=== PATIENT | female | born 1950 | race Caucasian/White ===

== ENCOUNTER 2017-08-21 07:18 | Outpatient (CLI) | payer MEDICARE ==
[~2017-08-21 07:18] MED LIST: Gadobenate Dimeglumine 529 MG/1 ML (20ML VIAL) ONE
--- NOTE | 2017-08-21 10:00 | MRI ---
MRI OF THE LUMBAR SPINE WITHOUT CONTRASTS: Date: 08-21-17 Comparison: None. History: Lumbar spine facet arthritis, right lower extremity radiculopathy, back pain. Technique: Multiplanar, multisequence MR imaging of the lumbar spine is obtained without contrast. FINDINGS: The sagittal STIR imaging demonstrates no focal area of osseous marrow edema. There is mild fluid sig nal intensity within the facet joints at L3-4, left greater than right. No significant anterolisthesi s or retrolisthesis is seen. Assuming five lumbar type vertebral bodies, the conus medullaris termina luiza at the T12-L1 level. T12-L1: Intervertebral disc height and signal intensity appears within normal limits. Mild anterior o steophyte formation noted left of midline. No significant central canal or neural foraminal stenosis. L1-2: Mild bilateral facet hypertrophy. No significant central canal or neural foraminal stenosis. L2-3: There is bilateral facet hypertrophy and hypertroph of ligamentum flavum. No significant centr al canal stenosis or neural foraminal stenosis. L3-4: There is moderate bilateral facet hypertrophy and hypertrophy of ligamentum flavum, left greate r than right. There is disc space narrowing, disc desiccation and mild disc bulge. Findings lead to m oderate central canal stenosis. There is mild bilateral neural foraminal stenosis. L4-5: There is moderate bilateral facet hypertrophy. There is mild central canal stenosis and mild to moderate bilateral neural foraminal stenosis. L5-S1: There is disc desiccation and mild disc space narrowing. There is bilateral facet hypertrophy. There is mild central canal stenosis. No significant neural foraminal stenosis. The imaged retroperitoneal structures appear grossly unremarkable. IMPRESSION: Multilevel facet hypertrophy with associated areas of central canal and neural foraminal stenosis, mo st significant at L3-4. POS: ERIKA
== END 2017-08-21 07:19 | disposition home or self-care (01) ==
LOC: MRI 07:18
PROVIDERS: ATTEND Family Medicine
DX: M46.96 Unspecified inflammatory spondylopathy, lumbar region (principal); M99.83 Other biomechanical lesions of lumbar region
CPT/HCPCS: 72158; 82565; A9579

== ENCOUNTER 2018-08-27 13:13 | Outpatient (CLI) | payer MEDICARE ==
--- NOTE | 2018-08-27 15:13 | BD ---
DEXA DENSITOMETRY: INDICATIONS: A 68-year-old female for postmenopausal osteoporosis screening. FINDINGS: LUMBAR SPINE BMD (g/cm2) T-SCORE L1 1.042 0.5 L2 1.117 0.8 L3 1.112 0.3 L4 1.122 0.6 TOTAL 1.101 0.5 FEMORAL NECK 0.767 -0.7 TOTAL 0.872 -0.6 IMPRESSION: The bone mineral density of the lumbar spine and femoral neck are both within the normal range. POS: ERIKA
== END 2018-08-27 13:14 | disposition home or self-care (01) ==
LOC: BICMAMMO 13:13
PROVIDERS: ATTEND Family Medicine
DX: Z12.31 Encounter for screening mammogram for malignant neoplasm of breast (principal); Z13.820 Encounter for screening for osteoporosis
CPT/HCPCS: 77063; 77067; 77080

== ENCOUNTER 2019-06-10 07:15 | Outpatient (CLI) | payer MEDICARE ==
[2019-06-10 13:42] LABS: #Eosinphils 0.4 thou/uL (0.0-0.7); #Monocytes 0.9 thou/uL (0.11-0.59); #Neutrophils 5.7 thou/uL (1.40-6.50); %Basophils 0.4 % (0.0-1.0); %Eosinophils 3.3 % (0.0-10.0); %Lymphocytes 36.1 % (21.0-51.0); %Monocytes 8.3 % (0.0-10.0); Hemoglobin 14.6 g/dL (12.0-16.0); Mean Corpuscular HGB CONC 33.3 g/dL (32.0-36.0); Mean Corpuscular Hemoglobin 29.2 pg (27.0-31.0); Mean Corpuscular Volume 87.9 fL (78.0-98.0); Mean Platelet Volume 9.8 fL (7.4-10.4); Platelet Count 202 thou/uL (130-400); RBC Distribution Width 11.9 % (11.5-14.5); Red Blood Cell (RBC) Count 4.99 mill/uL (4.20-5.40)
[2019-06-10 13:49] LABS: Bacteria/HPF 4+ HPF (None Seen); Bilirubin Negative (Negative); Blood, Urine Negative (Negative); Clarity Turbid (Clear); Glucose, Urine (Dipstick) Normal (Negative); Leukocyte 500 Leu/uL (Negative); Nitrite Negative (Negative); Protein, Urine (Dipstick) 30 mg/dL (Neg-Trace); Squamous Epithelial 21-50 HPF (0-3); WBC/HPF Greater than 50 HPF (0-3)
[2019-06-10 14:03] LABS: RBC/HPF 0-3 HPF (0-3); Yeast-Budding None Seen HPF (None Seen)
[2019-06-10 14:31] LABS: Anion Gap 14 mmol/L (10-20); BUN (Urea Nitrogen) 15 mg/dL (9.8-20.1); Calc. Creatinine Clearance 0 mL/min (70-130); Calcium 9.2 mg/dL (7.8-10.44); Carbon Dioxide 26 mmol/L (23-31); Chloride 103 mmol/L (98-107); Estimated GFR-MDRD 73; Glucose 85 mg/dL (80-115); Potassium 4.1 mmol/L (3.5-5.1); Sodium 139 mmol/L (136-145)
[2019-06-10 14:38] LABS: INR-International Normal Ratio 0.9; Prothrombin Time 12.2 SEC (12.0-14.7)
== END 2019-06-10 07:16 | disposition home or self-care (01) ==
LOC: LABBT 07:15
PROVIDERS: ATTEND Orthopaedic Surgery
DX: Z01.812 Encounter for preprocedural laboratory examination (principal); M16.11 Unilateral primary osteoarthritis, right hip
CPT/HCPCS: 80048; 81001; 85025; 85610; 87081; 93005; 93010

== ENCOUNTER 2019-06-10 13:30 | Inpatient (IN) | payer MEDICARE ==
[2019-06-10 12:42] VITALS: BMI 35.6
[2019-06-22] MEDS ORDERED: Sodium Chloride 0.9% 100 ML ONE (05:53)
[2019-06-22] MEDS ORDERED: Tranexamic Acid 1,000 MG/10 ML VIAL ONE ×2 (05:53→09:42)
[2019-06-22] MEDS ORDERED: Vancomycin HCl 1.5 GM in Sodium Chloride 0.9% 250 ML 300 ML IVPB SCH ×3 (06:15→19:00)
[2019-06-22] MEDS ORDERED: Fentanyl 100 MCG/2 ML VIAL ONE ×2 (06:29→07:06)
[2019-06-22] MEDS ORDERED: Midazolam HCl 2 mg/2 ml Vial ONE (06:29)
[2019-06-22] MEDS ORDERED: Acetaminophen 500 MG TAB PO PRN (06:56)
[2019-06-22] MEDS ORDERED: diphenhydrAMINE 50 MG/ML VIAL IM PRN (07:00)
[2019-06-22] MEDS ORDERED: traMADol HCl 50 MG TAB PO PRN ×3 (07:00→09:11)
[2019-06-22] MEDS ORDERED: Promethazine HCl 25 MG/ML VIAL IM PRN ×3 (07:00→09:11)
[2019-06-22] MEDS ORDERED: diphenhydrAMINE 25 MG CAP PO PRN ×2 (07:00→09:11)
[2019-06-22] MEDS ORDERED: Promethazine HCl 25 MG SUPP PR PRN (07:00)
[2019-06-22] MEDS ORDERED: Zolpidem Tartrate 5 MG TAB PO PRN ×2 (07:00→09:11)
[2019-06-22] MEDS ORDERED: Naloxone HCl 0.4 mg/ml Vial IV PRN (07:00)
[2019-06-22] MEDS ORDERED: Hydrocerin (Eucerin) Cream 120 gm Jar TOP PRN (07:00)
[2019-06-22] MEDS ORDERED: Naloxone HCl 0.4 mg/ml Vial IVP PRN (07:00)
[2019-06-22] MEDS ORDERED: diphenhydrAMINE 50 MG/ML VIAL IVP PRN (07:00)
[2019-06-22] MEDS ORDERED: HYDROcodone/Acetaminophen 5/325 mg Tablet PO PRN ×2 (07:00)
[2019-06-22] MEDS ORDERED: Ondansetron PF 4 MG/2 ML Vial IVP PRN ×2 (07:00→09:11)
[2019-06-22] MEDS ORDERED: Bupivacaine 0.25% HCL 30 ML VIAL ONE (07:40)
[2019-06-22] MEDS ORDERED: Ondansetron HCl/PF 4 MG/2 ML Vial IVP PRN (09:10)
[2019-06-22] MEDS ORDERED: Promethazine HCl 25 MG/ML VIAL SLOW IVP PRN (09:10)
[2019-06-22] MEDS ORDERED: Fentanyl 100 MCG/2 ML VIAL SLOW IVP PRN ×2 (09:11)
[2019-06-22] MEDS ORDERED: HYDROcodone/Acetaminophen 10/325 mg Tablet PO PRN ×2 (09:11)
[2019-06-22] MEDS ORDERED: Acetaminophen 325 MG TAB PO PRN (09:11)
[2019-06-22] MEDS ORDERED: Ketorolac Tromethamine 30 MG/ML VIAL IVP PRN (09:11)
--- NOTE | 2019-06-22 10:13 | RAD ---
RIGHT HIP 2 VIEWS: Date: 06/22/19 HISTORY: Hip replacement. FINDINGS/IMPRESSION: There are recent postop changes of total hip arthroplasty in good position and alignment. POS: TPC
[2019-06-22] MEDS ORDERED: Mometasone Furoate 30 PUFF 220 MCG INH PRN (10:31)
[2019-06-22] MEDS: Aspirin 81 mg Enteric Coated Tablet PO SCH ×2 (11:01→21:16)
[2019-06-22] MEDS: Dextrose 5 %-0.45 % NaCl 1,000 ML IV SCH ×2 (11:01→23:31)
[2019-06-22] MEDS: Ketorolac Tromethamine 30 MG/ML VIAL IVP SCH ×3 (11:01→23:27)
--- NOTE | 2019-06-22 11:20 | HP ---
PREOPERATIVE DIAGNOSIS: Right hip osteoarthritis. HISTORY OF PRESENT ILLNESS: Ms. Beasley is a 69-year-old female, who presents to me with right hip pain for greater than 3 years. Pain is 0/10. She has history of lumbar stenosis, pain with walking long distance. She has pain with extremes of motion localized to her groin. PAST MEDICAL HISTORY: Hypertension, right hip pain, hypothyroidism, arthritis, lumbar stenosis, hypertension, and reflux. PAST SURGICAL HISTORY: Left broken ankle ORIF. ALLERGIES: INCLUDE CIPROFLOXACIN. MEDICATIONS: Include; 1. Aspirin. 2. Clonidine. 3. Diclofenac. 4. Flovent. 5. Furosemide. 6. Levothyroxine. 7. Lisinopril. 8. Multivitamin. 9. Omeprazole. SOCIAL HISTORY: She is a former smoker. No alcohol, or drug use. The patient's daughter is at bedside. PHYSICAL EXAMINATION: GENERAL: Alert and oriented female, in no acute distress, resting comfortably in bed. EXTREMITIES: Little bit slightly shorter right lower extremity. No instability. Neurovascularly intact. Sensation intact. Internal rotation 20, external 20 straight legs. IMAGING DATA: Hip and pelvis x-ray show progression of osteoarthritis of her right hip. LABORATORY VALUES: MRSA negative. Her creatinine is 0.79. The patient's H and H are 14 and 43. INR 0.9. Bacteria and squamous epithelium. No ketones. IMPRESSION: 1. Right hip osteoarthritis. 2. Stenosis. 3. Reflux. 4. Hypertension. PLAN: At this point, the patient is cleared by Cardiology. Plan for right total hip arthroplasty. I discussed the risks and benefits of surgery to include pain, scar, bleeding, infection, need for further surgeries, continued pain by surgical intervention, lengthening, rotational deformity, irritation of the low back, damage to vital structures, nerves, arteries, tendons, need for further surgeries, failure of procedure or implants [facility], also loss of life or limb, the patient understands these risks and benefits, elects to proceed. The patient was taken back to the operative suite. Job ID: [id number]
[2019-06-22] MEDS ORDERED: Ondansetron PF 4 MG/2 ML Vial ONE (12:38)
[2019-06-22] MEDS ORDERED: Rocuronium Bromide 10 MG/ML (10ML VIAL) ONE (12:38)
[2019-06-22] MEDS ORDERED: ePHEDrine/0.9% NaCl/PF SYRINGE 50 mg/10 ml ONE (12:38)
[2019-06-22] MEDS ORDERED: PROPOFOL 200 MG/20 ML VIAL ONE (12:38)
[2019-06-22] MEDS ORDERED: Dexamethasone 20 MG/5 ML VIAL ONE (12:38)
[2019-06-22] MEDS ORDERED: Lidocaine 1.5% w/Epi 1:200K 30 ML VIAL (Epid Use) ONE (12:38)
[2019-06-22] MEDS ORDERED: Glycopyrrolate 0.2 MG/ML 5 ML SYRINGE ONE (12:38)
[2019-06-22] MEDS ORDERED: Lidocaine 1% PF 5 ML VIAL ONE (12:38)
--- NOTE | 2019-06-22 12:56 | PDOC.HOSPP ---
- Subjective Encounter Date: 06/22/19 Encounter Time: 11:00 Subjective: no sob or palp is post op, awake and oriented her right leg is still numb but can move it - Objective Vital Signs & Weight: Vital Signs (12 hours) Temp Pulse Resp BP Pulse Ox 06/22/19 11:37 95 06/22/19 10:12 97.2 F L 71 16 95/59 L 96 Weight Weight 189 lb Hospitalist ROS - Medication Medications: Active Medications Generic Name Dose Route Start Last Admin Trade Name Freq PRN Reason Stop Dose Admin Aspirin 81 mg 06/22/19 09:11 06/22/19 11:01 Ecotrin PO 81 mg BID JONATHAN Administration Dextrose/Sodium Chloride 1,000 mls @ 100 mls/hr 06/22/19 09:11 06/22/19 11:01 D5 1/2 Ns IV 1,000 mls .Q10H JONATHAN Administration Ketorolac Tromethamine 15 mg 06/22/19 12:00 06/22/19 11:01 Toradol IVP 06/24/19 06:01 15 mg Q6HR JONATHAN Administration Ondansetron HCl 4 mg 06/22/19 07:00 06/22/19 11:14 Zofran IVP 4 mg Q6H PRN Administration Nausea/Vomiting - Exam General Appearance: awake alert Eye: PERRL, anicteric sclera ENT: no oropharyngeal lesions, dry oral mucosa Neck: supple, no JVD Heart: no murmur, no rubs Respiratory: no wheezes, no rales Gastrointestinal: soft, non-tender, non-distended, normal bowel sounds Extremities - other findings: right hip surgical site in dressing Neurological: cranial nerve grossly intact, no focal deficits Psychiatric: normal affect, A&O x 3 Hosp A/P (1) Status post right hip replacement Code(s): Z96.641 - PRESENCE OF RIGHT ARTIFICIAL HIP JOINT Status: Acute (2) HTN (hypertension) Code(s): I10 - ESSENTIAL (PRIMARY) HYPERTENSION Status: Chronic Qualifiers: Hypertension type: essential hypertension Qualified Code(s): I10 - Essential (primary) hypertension (3) Hypothyroidism Code(s): E03.9 - HYPOTHYROIDISM, UNSPECIFIED Status: Chronic Qualifiers: Hypothyroidism type: unspecified Qualified Code(s): E03.9 - Hypothyroidism , unspecified (4) Osteoarthritis Code(s): M19.90 - UNSPECIFIED OSTEOARTHRITIS, UNSPECIFIED SITE Status: Chronic Qualifiers: Osteoarthritis location: multiple joints Osteoarthritis type: primary Qualified Code(s): M15.0 - Primary generalized (osteo)arthritis - Plan currently hypotensive, will hold clonidine, lasix and lisinopril continue iv fluids, asp bid, synthroid, i.spirometer PT/OT to mobilize per ortho adv will f/u ekg at baseline is sinus at 63/min, has underlying rbbb. on fentanyl, norco prn, has nerve block
--- NOTE | 2019-06-22 14:15 | OP ---
DATE OF PROCEDURE: 06/22/2019 PREOPERATIVE DIAGNOSIS: Right hip osteoarthritis. POSTOPERATIVE DIAGNOSIS: Right hip osteoarthritis. PROCEDURE PERFORMED: Right total hip arthroplasty. DIVINITY PROFESSOR: Kalina Bond PA-C ANESTHESIOLOGIST: Dr. Castaneda. ANESTHESIA: The patient received a general endotracheal intubation with an epidural. ESTIMATED BLOOD LOSS: 200 mL. TOURNIQUET TIME: None. IMPLANTS: A Marija Trident 10-degree poly insert 36 mm E, Trident PSL cluster acetabular shell 52 mm, Accolade II, 30 degree and size 3 stem, and a Biolox 36 mm modified ceramic delta implant. ANTIBIOTICS: Ancef 2 g, vancomycin 1.5 g, and TXA 1 g. COMPLICATIONS: None. HISTORY OF PRESENT ILLNESS: Ms. Beasley is a 69-year-old female, who presented with right hip pain. The patient had failed conservative measures to include pain, scar, bleeding, infection, damage to vital structures, decreased range of motion and strength, need for further surgeries, failure of procedure, continued pain despite conservative management. The patient understood the risks and benefits of right total hip arthroplasty to include pain, scar, bleeding, infection, damage to vital structures, decreased range of motion and strength, need for further surgeries, loss of life or limb. The patient understood these risks and benefits and elected to proceed. DESCRIPTION OF PROCEDURE: Time-out was performed designating the patient's right lower extremity as the operative site based on site, consents, marking. After time-out, the patient's right lower extremity was prepped and draped in a sterile fashion. She was placed in lateral position with bony prominences well padded so far with hip positioner. We made a lateral incision down through skin, down through fat, down the IT band. The IT band was split and we came down the gluteus medius, which we did a tenotomy. We came down to expose the patient's gluteus medius and minimus to the capsule. We T'd the capsule excised it. We dislocated the hip and cut the neck and exposed the acetabulum. We reamed sequentially medializing starting with a 44 moving back down to 46 and back up to 52 and ultimately plan a 52 mm hemispherical cup. We impacted the cup in place, had good firm and stability. I felt it had good inclination as well as tilt except with overall alignment. We then placed our poly,in place We moved our femur, broached with cookie cutter, opening awl, followed by broach, broached to size 3 calcar planer, washed and reduced the hip with -3 fish had good range of motion. Good shuck, overall alignment and length, was happy with overall position. We then placed our ceramic head, reduced into place, washed, closed the gluteus minimus and medius with #2 , closed IT band with 2, followed by 2 stratafix,placed some subcutaneous fat stitches. We placed 0 and 2-0 Stratafix and glue to skin. The patient will be weightbearing as tolerated and will be followed in-house, on a walker. We will follow up with her in clinic about 2 weeks. Job ID: [id number] [facility]
[2019-06-22] MEDS: CEFAZOLIN 2 GM in Premix Bag 1 BAG IVPB SCH ×2 (15:40→23:27)
[2019-06-22] MEDS ORDERED: cloNIDine 0.1 MG TAB PO SCH (21:00)
[2019-06-22] MEDS ORDERED: Lisinopril 20 MG TAB PO SCH (21:00)
[2019-06-23] MEDS: fentaNYL Citrate/PF 500 MCG, Bupivacaine 10 ML in Sodium Chloride 0.9% 80 ML EPIDURAL SCH ×2 (01:16→15:57)
[2019-06-23 05:30] LABS: Mean Corpuscular HGB CONC 33.7 g/dL (32.0-36.0); Mean Corpuscular Hemoglobin 29.4 pg (27.0-31.0); Mean Corpuscular Volume 87.2 fL (78.0-98.0); Mean Platelet Volume 10.3 fL (7.4-10.4); Platelet Count 163 thou/uL (130-400); RBC Distribution Width 12.1 % (11.5-14.5); Red Blood Cell (RBC) Count 4.09 mill/uL (4.20-5.40); White Blood Cell (WBC) Count 13.8 thou/uL (4.8-10.8)
[2019-06-23] MEDS: Ketorolac Tromethamine 30 MG/ML VIAL IVP SCH ×3 (05:37→18:34)
[2019-06-23] MEDS: Levothyroxine Sodium 75 MCG TAB PO SCH (05:37)
[2019-06-23] MEDS ORDERED: Furosemide 20 MG TAB PO SCH (09:00)
[2019-06-23 09:26] LABS: Anion Gap 16 mmol/L (10-20); BUN (Urea Nitrogen) 9 mg/dL (9.8-20.1); Calc. Creatinine Clearance 103 mL/min (70-130); Calcium 8.4 mg/dL (7.8-10.44); Carbon Dioxide 19 mmol/L (23-31); Chloride 103 mmol/L (98-107); Estimated GFR-MDRD 81; Glucose 124 mg/dL (80-115); Potassium 3.9 mmol/L (3.5-5.1); Sodium 134 mmol/L (136-145)
[2019-06-23] MEDS ORDERED: Sodium Bicarbonate Tab 325 MG TAB PO SCH (10:15)
[2019-06-23] MEDS: Multivitamin W/ Minerals 1 TAB PO SCH (10:24)
[2019-06-23] MEDS: Aspirin 81 mg Enteric Coated Tablet PO SCH ×2 (10:24→21:17)
[2019-06-23] MEDS: Senokot S 8.6-50 MG TAB PO SCH ×2 (10:24→21:17)
[2019-06-23] MEDS: Ferrous Gluconate 324 MG TAB PO SCH ×2 (10:24→21:17)
[2019-06-23] MEDS: Dextrose 5 %-0.45 % NaCl 1,000 ML IV SCH ×2 (10:37→17:08)
[2019-06-23] MEDS ORDERED: FLU VACC TS2019-20(65YR UP)/PF 180 MCG/0.5 ML SYRINGE IM ONE (12:15)
--- NOTE | 2019-06-23 13:49 | PDOC.HOSPP ---
- Subjective Encounter Date: 06/23/19 Encounter Time: 13:47 Subjective: 69 y/o with HTN, hypothyroidism and DJD s/p R hip replacement being followed up for medical mgt. No new problem. Ambulating with therapy. No dizziness. Pain is controlled. - Objective Vital Signs & Weight: Vital Signs (12 hours) Temp Pulse Resp BP Pulse Ox 06/23/19 12:20 98.2 F 86 14 142/64 H 94 L 06/23/19 08:19 98.9 F 86 18 106/66 95 06/23/19 04:53 98.2 F 85 16 109/68 93 L Weight Admit Weight 189 lb Weight 189 lb I&O: 06/22/19 06/23/19 06/24/19 06:59 06:59 06:59 Intake Total 3140 Output Total 2850 Balance 290 Result Diagrams: 06/23/19 04:22 06/23/19 08:44 Hospitalist ROS - Medication Medications: Active Medications Generic Name Dose Route Start Last Admin Trade Name Freq PRN Reason Stop Dose Admin Aspirin 81 mg 06/22/19 09:11 06/23/19 10:24 Ecotrin PO 81 mg BID JONATHAN Administration Ferrous Gluconate 324 mg 06/23/19 09:00 06/23/19 10:24 Fergon PO 324 mg BID JONATHAN Administration Fentanyl Citrate 500 mcg/ 100 mls @ 6 mls/hr 06/22/19 07:00 06/23/19 01:16 Bupivacaine HCl 10 ml/ Sodium EPIDURAL 100 mls Chloride INF JONATHAN Administration Dextrose/Sodium Chloride 1,000 mls @ 100 mls/hr 06/22/19 09:11 06/23/19 10:37 D5 1/2 Ns IV Not Given .Q10H JONATHAN Iron/Minerals/Multivitamins 1 tab 06/23/19 09:00 06/23/19 10:24 Theragran M PO 1 tab DAILY JONATHAN Administration Ketorolac Tromethamine 15 mg 06/22/19 12:00 06/23/19 05:37 Toradol IVP 06/24/19 06:01 15 mg Q6HR JONATHAN Administration Levothyroxine Sodium 75 mcg 06/23/19 06:00 06/23/19 05:37 Synthroid PO 75 mcg 0600 JONATHAN Administration Ondansetron HCl 4 mg 06/22/19 07:00 06/22/19 11:14 Zofran IVP 4 mg Q6H PRN Administration Nausea/Vomiting Promethazine HCl 12.5 mg 06/22/19 07:00 06/22/19 13:13 Phenergan IM 12.5 mg Q4H PRN Administration Nausea Senna/Docusate Sodium 2 tab 06/23/19 09:00 06/23/19 10:24 Senokot S PO 2 tab BID JONATHAN Administration - Exam General Appearance: awake alert Eye: anicteric sclera ENT: normocephalic atraumatic Neck: supple, no JVD Heart: RRR Respiratory: no wheezes, no rales, no ronchi, normal chest expansion Gastrointestinal: soft, non-tender, non-distended, normal bowel sounds Extremities: no cyanosis, no edema Neurological: cranial nerve grossly intact, no focal deficits Psychiatric: normal affect, A&O x 3 Hosp A/P (1) Metabolic acidosis Code(s): E87.2 - ACIDOSIS Status: Acute (2) Hypotension Status: Acute (3) Status post right hip replacement Code(s): Z96.641 - PRESENCE OF RIGHT ARTIFICIAL HIP JOINT Status: Acute (4) HTN (hypertension) Code(s): I10 - ESSENTIAL (PRIMARY) HYPERTENSION Status: Chronic Qualifiers: Hypertension type: essential hypertension Qualified Code(s): I10 - Essential (primary) hypertension (5) Hypothyroidism Code(s): E03.9 - HYPOTHYROIDISM, UNSPECIFIED Status: Chronic Qualifiers: Hypothyroidism type: unspecified Qualified Code(s): E03.9 - Hypothyroidism , unspecified (6) Osteoarthritis Code(s): M19.90 - UNSPECIFIED OSTEOARTHRITIS, UNSPECIFIED SITE Status: Chronic Qualifiers: Osteoarthritis location: multiple joints Osteoarthritis type: primary Qualified Code(s): M15.0 - Primary generalized (osteo)arthritis (7) Hyponatremia Code(s): E87.1 - HYPO-OSMOLALITY AND HYPONATREMIA Status: Acute - Plan Start alkali therapy. Continue IV fluid Continue to hold antihypertensives till BP stabilize. Analgesic as per Ortho
[2019-06-23] MEDS: Sodium Bicarbonate Tab 325 MG TAB PO SCH (21:17)
[2019-06-24] MEDS: Ketorolac Tromethamine 30 MG/ML VIAL IVP SCH ×2 (00:28→05:20)
[2019-06-24] MEDS: Dextrose 5 %-0.45 % NaCl 1,000 ML IV SCH (01:14)
[2019-06-24 04:56] LABS: Hemoglobin 11.8 g/dL (12.0-16.0); Mean Corpuscular HGB CONC 33.3 g/dL (32.0-36.0); Mean Corpuscular Hemoglobin 29.3 pg (27.0-31.0); Mean Platelet Volume 9.5 fL (7.4-10.4); Platelet Count 157 thou/uL (130-400); RBC Distribution Width 12.2 % (11.5-14.5); Red Blood Cell (RBC) Count 4.02 mill/uL (4.20-5.40); White Blood Cell (WBC) Count 11.3 thou/uL (4.8-10.8)
[2019-06-24 05:14] LABS: Anion Gap 12 mmol/L (10-20); BUN (Urea Nitrogen) 7 mg/dL (9.8-20.1); Calc. Creatinine Clearance 110 mL/min (70-130); Calcium 8.6 mg/dL (7.8-10.44); Carbon Dioxide 25 mmol/L (23-31); Chloride 105 mmol/L (98-107); Estimated GFR-MDRD 88; Glucose 104 mg/dL (80-115); Sodium 138 mmol/L (136-145)
[2019-06-24] MEDS: Levothyroxine Sodium 75 MCG TAB PO SCH (05:20)
[2019-06-24] MEDS: Aspirin 81 mg Enteric Coated Tablet PO SCH (09:50)
[2019-06-24] MEDS: Ferrous Gluconate 324 MG TAB PO SCH (09:50)
[2019-06-24] MEDS: Sodium Bicarbonate Tab 325 MG TAB PO SCH (09:50)
[2019-06-24] MEDS: Senokot S 8.6-50 MG TAB PO SCH (09:51)
[2019-06-24] MEDS: Multivitamin W/ Minerals 1 TAB PO SCH (09:51)
[2019-06-24] MEDS ORDERED: Ondansetron ODT 4 MG TAB PO PRN (10:33)
[2019-06-24] MEDS ORDERED: Bisacodyl 10 MG SUPP PR SCH (10:45)
--- NOTE | 2019-06-24 11:29 | PDOC.HOSPP ---
- Subjective Encounter Date: 06/24/19 Encounter Time: 10:28 Subjective: 69 y/o with HTN, hypothyroidism and DJD s/p R hip replacement being followed up for medical mgt. No new problem. Ambulating with therapy. Ambulating with therapy. - Objective Vital Signs & Weight: Vital Signs (12 hours) Temp Pulse Resp BP BP Pulse Ox 06/24/19 11:10 99.4 F 86 16 147/81 H 94 L 06/24/19 08:21 98.0 F 86 14 132/79 94 L 06/24/19 04:28 99.4 F 86 16 136/75 94 L 06/23/19 23:38 99.6 F 86 16 155/84 H 94 L Weight Admit Weight 189 lb Weight 189 lb I&O: 06/23/19 06/24/19 06/25/19 06:59 06:59 06:59 Intake Total 3140 2500 Output Total 2850 3700 Balance 290 -1200 Result Diagrams: 06/24/19 04:37 06/24/19 04:37 Hospitalist ROS - Medication Medications: Active Medications Generic Name Dose Route Start Last Admin Trade Name Freq PRN Reason Stop Dose Admin Aspirin 81 mg 06/22/19 09:11 06/24/19 09:50 Ecotrin PO 81 mg BID JONATHAN Administration Ferrous Gluconate 324 mg 06/23/19 09:00 06/24/19 09:50 Fergon PO 324 mg BID JONATHAN Administration Fentanyl Citrate 500 mcg/ 100 mls @ 6 mls/hr 06/22/19 07:00 06/23/19 15:57 Bupivacaine HCl 10 ml/ Sodium EPIDURAL 100 mls Chloride INF JNOATHAN Administration Iron/Minerals/Multivitamins 1 tab 06/23/19 09:00 06/24/19 09:51 Theragran M PO 1 tab DAILY JONATHAN Administration Levothyroxine Sodium 75 mcg 06/23/19 06:00 06/24/19 05:20 Synthroid PO 75 mcg 0600 JONATHAN Administration Ondansetron HCl 4 mg 06/24/19 10:33 06/24/19 10:35 Zofran Odt PO 4 mg Q6H PRN Administration Nausea/Vomiting Pantoprazole Sodium 40 mg 06/24/19 09:00 06/24/19 09:52 Protonix PO 40 mg Q2D JONATHAN Administration Promethazine HCl 12.5 mg 06/22/19 07:00 06/22/19 13:13 Phenergan IM 12.5 mg Q4H PRN Administration Nausea Senna/Docusate Sodium 2 tab 06/23/19 09:00 06/24/19 09:51 Senokot S PO 2 tab BID JONATHAN Administration - Exam General Appearance: awake alert Eye: anicteric sclera ENT: normocephalic atraumatic Neck: supple, symmetric, no JVD Heart: RRR Respiratory: no wheezes, no ronchi, normal chest expansion, no tachypnea Gastrointestinal: soft, non-tender, non-distended, normal bowel sounds Extremities: no cyanosis, no edema Neurological: cranial nerve grossly intact, no focal deficits Psychiatric: normal affect, A&O x 3 Hosp A/P (1) Metabolic acidosis Code(s): E87.2 - ACIDOSIS Status: Acute (2) Hypotension Status: Acute (3) Status post right hip replacement Code(s): Z96.641 - PRESENCE OF RIGHT ARTIFICIAL HIP JOINT Status: Acute (4) HTN (hypertension) Code(s): I10 - ESSENTIAL (PRIMARY) HYPERTENSION Status: Chronic Qualifiers: Hypertension type: essential hypertension Qualified Code(s): I10 - Essential (primary) hypertension (5) Hypothyroidism Code(s): E03.9 - HYPOTHYROIDISM, UNSPECIFIED Status: Chronic Qualifiers: Hypothyroidism type: unspecified Qualified Code(s): E03.9 - Hypothyroidism , unspecified (6) Osteoarthritis Code(s): M19.90 - UNSPECIFIED OSTEOARTHRITIS, UNSPECIFIED SITE Status: Chronic Qualifiers: Osteoarthritis location: multiple joints Osteoarthritis type: primary Qualified Code(s): M15.0 - Primary generalized (osteo)arthritis (7) Hyponatremia Code(s): E87.1 - HYPO-OSMOLALITY AND HYPONATREMIA Status: Acute - Plan Restart antihypertensive at a lower dose of lisinopril 10 mg daily. DC IVF and alkali therapy Hyponatremia hs resolved. [place] to be due to volume contraction with appropriate ADH secretion. Analgesic as per Ortho Can be discharged from Medical point of view. However lisinopril 10 daily will suffice for now till re evaluated by PCP. Patient advised to check BP am/pm and keep a log to be reviewed by PCP
[2019-06-24] MEDS ORDERED: Lisinopril 10 MG TAB PO SCH (11:30)
[2019-06-24 16:10] VITALS: BP 109/71; TEMP 98.9
--- NOTE | 2019-06-25 14:24 | DIS ---
DATE OF ADMISSION: 06/22/2019 DATE OF DISCHARGE: 06/24/2019 This is Kalina Bond PA-C dictating a report for Pelon Cespedes MD. REASON FOR ADMISSION: Right total hip replacement. CONSULTANTS ON THE CASE: Include [facility] as well as [facility]. PREOPERATIVE DIAGNOSIS: Right hip osteoarthritis. POSTOPERATIVE DIAGNOSIS: Right hip osteoarthritis. PROCEDURE PERFORMED: Right total hip arthroplasty. BRIEF HOSPITAL COURSE: Ms. Beasley is a 69-year-old female who had initial presentation of right hip pain. She failed conservative measures and was indicated for the above-mentioned procedure. 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 No complications were incurred during her hospital stay. On postoperative day #2, she was discharged home. DISCHARGE DISPOSITION: Home. DISCHARGE CONDITION: Stable. DISCHARGE INSTRUCTIONS: The patient will follow up as scheduled with home health physical therapy. She will follow up with Dr. Cespedes as scheduled. She will keep her operative site to her hip clean, dry, and intact until followup. She will change the dressing as needed. DISCHARGE MEDICATIONS: See OCT. Job ID: [id number]
== END 2019-06-24 16:27 | disposition home or self-care (01) | DRG 470 ==
LOC: SJJU 06-22 05:17 → SURG B 06-22 10:07
PROVIDERS: ADMIT Orthopaedic Surgery; ATTEND Orthopaedic Surgery
PROC: 0SR904Z Replacement of Right Hip Joint with Ceramic on Polyethylene Synthetic Substitute, Open Approach (ICD-10-PCS; principal; 2019-06-22)
DX: M16.11 Unilateral primary osteoarthritis, right hip (principal); E87.2 Acidosis; E87.1 Hypo-osmolality and hyponatremia; E78.5 Hyperlipidemia, unspecified; I95.9 Hypotension, unspecified; M48.061 Spinal stenosis, lumbar region without neurogenic claudication; K21.9 Gastro-esophageal reflux disease without esophagitis; I10 Essential (primary) hypertension; E03.9 Hypothyroidism, unspecified; Z88.1 Allergy status to other antibiotic agents; Z87.891 Personal history of nicotine dependence
CPT/HCPCS: 36415; 80048; 85027; 90471; 90662; G0008; J0690; J1100; J1885; J2001; J2250; J2405; J2550; J2704; J3010; J3370; J3490; J7050; Q0162; S0020

== ENCOUNTER 2019-08-04 07:50 | Emergency (ER) | payer MEDICARE ==
[2019-08-04 09:14] LABS: Bilirubin Negative (Negative); Blood, Urine Negative (Negative); Clarity Clear (Clear); Glucose, Urine (Dipstick) Normal (Negative); Leukocyte Negative Leu/uL (Negative); Nitrite Negative (Negative); Protein, Urine (Dipstick) 20 mg/dL (Neg-Trace); Urobilinogen Normal mg/dL (Less than 2)
[2019-08-04] MEDS ORDERED: Cyclobenzaprine 10 MG TAB ONE (09:35)
[2019-08-04] MEDS ORDERED: Ketorolac Tromethamine 30 MG/ML VIAL ONE (09:35)
== END 2019-08-04 10:40 | disposition home or self-care (01) ==
LOC: ERS 07:50
DX: G89.29 Other chronic pain (principal); M54.5 Low back pain; I49.9 Cardiac arrhythmia, unspecified; I10 Essential (primary) hypertension; Z87.891 Personal history of nicotine dependence
CPT/HCPCS: 81003; 96372; 99283; J1885

== ENCOUNTER 2020-05-05 13:06 | Outpatient (CLI) | payer MEDICARE ==
--- NOTE | 2020-05-05 14:37 | MRI ---
Exam: MRI cervical spine without contrast HISTORY: Cervical disc disease. Facet arthritis, cervical region.. COMPARISON: None FINDINGS: Appropriate T1 marrow signal intensity of the cervical vertebra. Cervical spine vertebral body heigh ts are maintained. No cervical spine fracture. No significant STIR hyperintensity to suggest ligamentous injury or vertebral body edema. There appears to be incomplete segmentation of the C5-C6 level. Findings are similar to radiograph fr om 04/17/2020 Visualized brain parenchyma, cervicomedullary junction, cervical cord and the upper thoracic cord are normal size and signal intensity C2-C3: No high-grade central canal stenosis. Patent right neural foramen. Moderate left foraminal sindi rowing due to uncovertebral and facet hypertrophy C3-C4: Central/left paracentral disc osteophyte complex with a superimposed disc herniation. Moderate mass effect and deformity the left hemicord, without cord signal abnormality. Mild right and moderate left foraminal narrowing predominantly due to uncovertebral and facet hypertrophy. C4-C5: Desiccation with moderate loss of disc space height. Broad-based discussed by complex, ligamen claude flavum thickening result in severe central canal stenosis. Abnormal T2 and STIR hyperintensity cord suggesting cord edema. Moderate right and severe left foraminal narrowing. C5-C6: Lack of complete segmentation. No significant central canal stenosis or significant neural for aminal narrowing C6-C7: Desiccation with moderate loss of disc space height. A central disc herniation which deforms t he midline cord. No cord signal abnormality. Moderate central canal stenosis. Mild right and moderate to severe left foraminal narrowing. C7-T1: No significant central canal stenosis or significant neural foraminal narrowing. IMPRESSION: 1. 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 Severe central canal stenosis at C4-C5 with associated T2 hyperintensity in the cord, most compati ble with cortical edema. 3. Varying degrees of neural foraminal narrowing as detailed above. Results of study conveyed to Dr. India Cooley via [facility] 05/05/2020 at 2:37 PM Code CR Transcribed Date/Time: 05/05/2020 2:50 PM
== END 2020-05-05 13:07 | disposition home or self-care (01) ==
LOC: TBSIIMAG 13:06
PROVIDERS: ATTEND Family Medicine
DX: M50.90 Cervical disc disorder, unspecified, unspecified cervical region (principal); M47.812 Spondylosis without myelopathy or radiculopathy, cervical region; M48.02 Spinal stenosis, cervical region
CPT/HCPCS: 72141

== ENCOUNTER 2020-05-17 10:10 | Outpatient (CLI) | payer MEDICARE ==
--- NOTE | 2020-05-17 10:31 | RAD ---
XR Cerv Sp Ap Lat STANDARD History: MRI follow-up Comparison: MRI cervical spine May 05, 2020 Findings: Large disc osteophyte complex at C4/C5. Ankylosis of the C5/C6 vertebral bodies which are s mall. Moderate C6/C7 disc osteophyte complex. 2 mm C4 over C5 retrolisthesis without significant translation with flexion or extension. Mild abnorm al posterior translation of C3 over C4 with cervical extension. Impression: Mild abnormal posterior translation of C3 over C4 with cervical extension.
== END 2020-05-17 10:11 | disposition home or self-care (01) ==
LOC: TBSIIMAG 10:10
PROVIDERS: ATTEND Neurological Surgery
DX: G95.20 Unspecified cord compression (principal)
CPT/HCPCS: 72040

== ENCOUNTER 2020-05-31 09:00 | Outpatient (CLI) | payer MEDICARE, OTHER ==
[2020-05-31 14:07] LABS: Anion Gap 13 mmol/L (10-20); BUN (Urea Nitrogen) 18 mg/dL (9.8-20.1); Calc. Creatinine Clearance 0 mL/min (70-130); Carbon Dioxide 26 mmol/L (23-31); Chloride 102 mmol/L (98-107); Estimated GFR-MDRD 63; Glucose 94 mg/dL (80-115); Potassium 4.2 mmol/L (3.5-5.1); Sodium 137 mmol/L (136-145)
[2020-05-31 14:20] LABS: #Eosinphils 0.1 thou/uL (0.0-0.7); #Lymphocytes 3.3 thou/uL (1.20-3.40); #Monocytes 1.2 thou/uL (0.11-0.59); #Neutrophils 13.2 thou/uL (1.40-6.50); %Basophils 0.3 % (0.0-1.0); %Eosinophils 0.5 % (0.0-10.0); %Lymphocytes 18.7 % (21.0-51.0); %Monocytes 6.8 % (0.0-10.0); %Neutrophils 73.8 % (42.0-75.0); Hemoglobin 15.6 g/dL (12.0-16.0); Mean Corpuscular HGB CONC 33.2 g/dL (32.0-36.0); Mean Corpuscular Hemoglobin 30.3 pg (27.0-31.0); Mean Corpuscular Volume 91.4 fL (78.0-98.0); Mean Platelet Volume 9.8 fL (7.4-10.4); Platelet Count 281 thou/uL (130-400); RBC Distribution Width 12.2 % (11.5-14.5); Red Blood Cell (RBC) Count 5.15 mill/uL (4.20-5.40); White Blood Cell (WBC) Count 17.8 thou/uL (4.8-10.8)
[2020-05-31 14:31] LABS: INR-International Normal Ratio 0.9; Prothrombin Time 12.5 sec (12.0-14.7)
[2020-06-01 12:48] LABS: SARS-CoV-2 MS2 Positive; SARS-CoV-2 N Gene Negative; SARS-CoV-2 S Gene Negative; SARS-CoV-2 by NAA Not Detected (NotDetected); SARS-CoV-2 orf1ab Negative
== END 2020-05-31 09:01 | disposition home or self-care (01) ==
LOC: LABBT 09:00
PROVIDERS: ATTEND Neurological Surgery
DX: Z01.812 Encounter for preprocedural laboratory examination (principal); M50.20 Other cervical disc displacement, unspecified cervical region; Z20.828 Contact with and (suspected) exposure to other viral communicable diseases
CPT/HCPCS: 80048; 85025; 85610; U0003; 87635

== ENCOUNTER → 2020-06-05 | Day surgery (SDC) | payer MEDICARE ==
[2020-06-02 09:59] VITALS: BMI 37.8
[~2020-06-05] MED LIST changes: +Albuterol Sulfate HFA (OR ONLY) ONE; +Dexamethasone 20 MG/5 ML VIAL ONE; +Fentanyl 100 MCG/2 ML VIAL ONE; +Fentanyl 250 MCG/5 ML VIAL ONE; -Gadobenate Dimeglumine 529 MG/1 ML (20ML VIAL) ONE; +Glycopyrrolate 0.2 MG/ML 5 ML SYRINGE ONE; +HYDROcodone/Acetaminophen 5/325 mg Tablet ONE; +Labetalol HCl 100 MG/20 ML VIAL ONE; +Lidocaine 1% PF 5 ML VIAL ONE; +Midazolam HCl 2 mg/2 ml Vial ONE; +Ondansetron PF 4 MG/2 ML Vial ONE; +PROPOFOL 200 MG/20 ML VIAL ONE; +Rocuronium Bromide 10 MG/ML (10ML VIAL) ONE; +Thrombin 5000 UNITS/5 ML VIAL ONE; +tiZANidine HCl 4 MG TAB ONE
--- NOTE | 2020-06-05 05:58 | HP ---
REASON FOR H AND P: Surgery on 06/05/2020, case #[id number]. HISTORY OF PRESENT ILLNESS: Ms. Beasley is a 70-year-old female with a chief complaint of neck pain, hands going numb, clumsy fingers, and unsteady gait. She started to notice the onset of her symptoms in March. She has bilateral arm pain, paresthesias along with her fingers not working properly. She has been more off balance. She now has to use either a cane or walker, so she does not fall. Her balance has become a concern because of her frequent falls. She denies any bladder or bowel dysfunction. REVIEW OF SYSTEMS: CONSTITUTIONAL: Denies fever or chills. ENT: Denies change in vision or hearing. CARDIAC: Denies chest pain, shortness of breath, or diaphoresis. PULMONARY: Denies shortness of breath, cough, or hemoptysis. GI: Denies abdominal pain, nausea, vomiting, diarrhea, or change in stool formation and consistency. : Denies trouble with urination, frequency of urination, bloody urine. SKIN: Denies skin rash, bruising, bleeding, or skin masses. MUSCULOSKELETAL: As per history of present illness. NEUROLOGIC: As per history of present illness. PSYCHOLOGICAL: Denies anxiety, depression, or behavior changes. MEDICATIONS: 1. Lisinopril 20 mg. 2. Clonidine 1 mg. 3. Levothyroxine 50 mcg. 4. Furosemide 20 mg. 5. Voltaren gel. 6. Baby aspirin. 7. Multivitamin. 8. Vicodin 5/325 mg. ALLERGIES: CIPROFLOXACIN OR CIPRO. PAST SURGICAL HISTORY: Broken ankle, right THR in 2019. HOSPITALIZATIONS: As above surgeries. MEDICAL HISTORY: HTN, HBP, abnormal ECG, hip pain, thyroid, back problems, arthritis. FAMILY HISTORY: Father . Mother , diagnosed with heart disease, stroke. SOCIAL HISTORY: Former smoker. Denies alcohol or illicit drugs. PHYSICAL EXAMINATION: VITAL SIGNS: Weight 180 pounds, height 61 inches, BMI 34.01. HEENT: Pupils are equal. Extraocular movements are intact. NECK: Soft, supple. No masses are noted. Range of motion is intact and nonpainful. NEUROLOGIC: Awake, alert, and oriented x3. Memory, attention, fund of knowledge normal. Cranial nerves grossly intact. Gait and station, lifts legs, tandem gait impossible, uses a walker to ambulate safely. Motor exam, loss of strength in SE's and IO's on both sides. Sensory exam, nondermatomal loss in both hands. Reflex exam, toes upgoing, brisk knee jerks. IMAGING: C-spine MRI, change in cord at level of compression C4-5. Hemicord compression at left C3-4. C6-7 disk without cord compression. 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 C-spine x-ray, flexion, extension, slight retrolisthesis of C4-5 with extension. ASSESSMENT: 1. 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 2. 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 PLAN: 1. ACDF C3-4, C4-5. 2. Preop labs, CBC, PT, PTT, COVID-19 testing. 3. Anesthesia clearance. INFORMED CONSENT: We discussed the indications, risks, benefits, alternatives, and expected results from surgery. The risks discussed included, but were not limited to bleeding, infection, CSF leak, nerve damage, weakness, swallowing trouble, feeding tube placement, tracheal injury, esophageal injury, vocal cord injury, spinal cord injury, incontinence, paralysis, ventilator dependency, wheelchair dependency, stroke, loss of vision, carotid artery injury, jugular vein injury, hardware misplacement, cardiopulmonary complications of anesthesia or . Long-term complications discussed included, but were not limited to hardware failure and degeneration of surrounding disk. She understands the risks and is willing to proceed. Job ID: [id number] [facility]
--- NOTE | 2020-06-05 11:07 | OP ---
DATE OF PROCEDURE: 06/05/2020 LABOR RELATIONS REPRESENTATIVE: Lawrence Sanchez PA-C PREOPERATIVE INDICATION: Prevent further neurological deterioration. 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 PROCEDURES PERFORMED: 1. Anterior cervical diskectomy, C3-4, C4-5. 2. Intervertebral arthrodesis, C3-4, C4-5. 3. Placement of intervertebral biomechanical device, C3-4 and C4-5. 4. Anterior cervical plating, C3-4 and C4-5. 5. Local morselized autograft, morselized allograft. 6. Operating microscope (interbody devices and anterior cervical plate were separate devices). DRAIN NUMBER: Zero. DRAIN TYPE: None. DESCRIPTION OF PROCEDURE: The patient was brought to the operating room. General endotracheal anesthesia was induced. The patient was carefully positioned on the operating table supine with her head supported by a donut-shaped headrest. A lateral fluoro radiograph was used to plan our incision. The right side of the neck was sterilely prepped and draped. We opened the incision with a 10 blade knife and controlled bleeding with bipolar cautery. We dissected sharply to the platysma and cut this muscle in line with our incision. We continued our dissection medial to the sternocleidomastoid and lateral to the trachea and esophagus. We arrived to the prevertebral space. We placed a marker at C3-4 and took a lateral fluoro radiograph to confirm the levels upon which we were operating. We then elevated the longus colli muscles off the anterior surface of C3, C4, and C5. C5 and C6 were one bone due to her Klippel-Feil anomaly. We elevated the longus colli muscles off the entire fused bone. We placed a self-retaining retractor underneath the longus colli muscles and placed distraction pins at C3 and C5. We distracted across the intervening interspaces. We incised those interspaces with a 15 blade knife and removed disk contents using curettes and rongeurs. The operative microscope was brought into the field. Under microscopic magnification using microsurgical techniques, we removed the remainder of the intervertebral disk. We accessed the ventral epidural space with a micro curette and used Kerrison rongeurs to remove posterior osteophytes and posterior longitudinal ligament and the remnants of disk from one neuroforamen across the interspace to the other neuroforamen. Once our decompression was secured, we turned our attention to arthrodesis. We prepared the endplates for grafting. We measured the height of the interspace with a bone rasp to 6 mm at C4-5 and 7 mm at C3-4. The appropriately sized PEEK intervertebral grafts were brought into the field. Osteophytes removed during our decompression were cleaned of soft tissue attachments, morselized, and added to demineralized bone matrix as our fusion substrate. The substrate was packed in the center of the PEEK graft and those grafts were advanced into the interspaces under radiographic guidance to the appropriate depth. We brought a 34 mm anterior cervical plate into the field. We removed the operating microscope. We drilled yard pilot holes through the plate into the vertebral body into the C3, C4, and C5 segments of the cervical spine. We affixed the plate using 14 mm screws. We engaged the locking mechanism over each of the 6 screws. AP and lateral fluoro radiographs confirmed adequate positioning of instrumentation. We irrigated with bacitracin irrigation. We closed in anatomical layers. We applied a sterile dressing. This was a clean case, no contamination. Job ID: [id number]
== END ==
LOC: SDC 05:43
PROVIDERS: ATTEND Neurological Surgery
PROC: 0RG20A0 Fusion of 2 or more Cervical Vertebral Joints with Interbody Fusion Device, Anterior Approach, Anterior Column, Open Approach (ICD-10-PCS; principal; 2020-06-05)
PROC: 0RT30ZZ Resection of Cervical Vertebral Disc, Open Approach (ICD-10-PCS; 2020-06-05)
DX: M50.01 Cervical disc disorder with myelopathy, high cervical region (principal); Q76.1 Klippel-Feil syndrome; I10 Essential (primary) hypertension; E07.9 Disorder of thyroid, unspecified; M19.90 Unspecified osteoarthritis, unspecified site; Z87.891 Personal history of nicotine dependence; Z79.82 Long term (current) use of aspirin; Z79.899 Other long term (current) drug therapy; Z88.1 Allergy status to other antibiotic agents
CPT/HCPCS: 20930; 20936; 22551; 22552; 22853 ×2; 76000; C1713 ×4; C1776; J0690; J1100; J2250; J2405; J2704; J3010; J3490

== ENCOUNTER 2020-12-21 10:43 | Outpatient (CLI) | payer MEDICARE | END 2020-12-21 10:44 | disposition home or self-care (01) | LOC: BICMAMMO 10:43 | PROVIDERS: ATTEND Family Medicine | DX: Z12.31 Encounter for screening mammogram for malignant neoplasm of breast (principal); Z13.820 Encounter for screening for osteoporosis; M85.852 Other specified disorders of bone density and structure, left thigh | CPT/HCPCS: 77063; 77067; 77080 ==

== ENCOUNTER 2022-01-02 08:25 | Observation (INO) | payer MEDICARE ==
[2022-01-02 10:17] LABS: Troponin I Less than 0.010 ng/mL (< 0.028)
[2022-01-02] MEDS ORDERED: Aspirin Chewable 81 MG TAB ONE (10:27)
[2022-01-02] MEDS ORDERED: hydrALAZINE 20 MG/ML VIAL SLOW IVP PRN (11:09)
[2022-01-02 13:25] VITALS: BMI 36.2
[2022-01-02 14:00] LABS: Troponin I Less than 0.010 ng/mL (< 0.028)
[2022-01-02] MEDS: Acetaminophen 325 MG TAB PO PRN (20:47)
[2022-01-02 21:37] LABS: SARS-CoV-2 PCR by NAA Not Detected (NotDetected)
[2022-01-03 05:32] LABS: #Eosinphils 0.4 thou/uL (0.0-0.7); #Lymphocytes 2.6 thou/uL (1.20-3.40); #Monocytes 0.5 thou/uL (0.11-0.59); #Neutrophils 4.8 thou/uL (1.40-6.50); %Basophils 0.5 % (0.0-1.0); %Eosinophils 4.4 % (0.0-10.0); %Monocytes 6.1 % (0.0-10.0); Hemoglobin 12.5 g/dL (12.0-16.0); Mean Corpuscular HGB CONC 28.8 g/dL (32.0-36.0); Mean Corpuscular Hemoglobin 27.5 pg (27.0-31.0); Mean Corpuscular Volume 95.2 fL (78.0-98.0); Mean Platelet Volume 10.1 fL (7.4-10.4); Platelet Count 231 thou/uL (130-400); RBC Distribution Width 12.6 % (11.5-14.5); Red Blood Cell (RBC) Count 4.57 mill/uL (4.20-5.40); White Blood Cell (WBC) Count 8.2 thou/uL (4.8-10.8)
[2022-01-03] MEDS ORDERED: Artificial Tear Sol 15 ML BOT EA EYE PRN (05:48)
[2022-01-03 05:51] LABS: ALT (SGPT) 27 U/L (8-55); AST (SGOT) 19 U/L (5-34); Albumin 3.7 g/dL (3.4-4.8); Alkaline Phosphatase 122 U/L (40-110); Anion Gap 16 mmol/L (10-20); BUN (Urea Nitrogen) 11 mg/dL (9.8-20.1); Bilirubin, Total 0.8 mg/dL (0.2-1.2); Calc. Creatinine Clearance 94 mL/min (70-130); Calcium 9.1 mg/dL (7.8-10.44); Carbon Dioxide 23 mmol/L (23-31); Cardiac Risk 6.4 (Less than 4.5); Chloride 106 mmol/L (98-107); Cholesterol 186 mg/dl (< 200 Desired); Glucose 109 mg/dL (80-115); HDL Cholesterol 29 mg/dL (>60 Neg Risk); LDL Cholesterol, Calculated 107 mg/dL; Potassium 3.9 mmol/L (3.5-5.1); Protein, Total 6.7 g/dL (5.8-8.1); Sodium 141 mmol/L (136-145); Triglycerides 250 mg/dL (Less than 150)
[2022-01-03] MEDS ORDERED: Aspirin 81 mg Enteric Coated Tablet PO SCH (09:00)
[2022-01-03] MEDS: Acetaminophen 325 MG TAB PO PRN (09:24)
[2022-01-03] MEDS ORDERED: Lisinopril 20 MG TAB PO SCH ×2 (09:30→21:00)
[2022-01-03] MEDS ORDERED: Levothyroxine Sodium 75 MCG TAB PO SCH (09:30)
[2022-01-03] MEDS ORDERED: Gabapentin 300 MG CAP PO SCH (10:00)
[2022-01-03 11:46] VITALS: BP 154/70; TEMP 98.9
[2022-01-03] MEDS ORDERED: Acetaminophen/Codeine 30-300mg Tablet PO PRN (13:08)
[2022-01-03] MEDS ORDERED: valACYclovir 500 MG TAB PO SCH (13:45)
[2022-01-03] MEDS ORDERED: predniSONE 20 MG TAB PO SCH (13:45)
[2022-01-03] MEDS ORDERED: cloNIDine 0.1 MG TAB PO SCH (21:00)
[2022-01-03] MEDS ORDERED: Multivit, Therapeutic 1 TAB PO SCH (21:00)
[2022-01-03] MEDS ORDERED: Docusate 100 MG CAP PO SCH (21:00)
[2022-01-03] MEDS ORDERED: Atorvastatin Calcium 20 MG TAB PO SCH (21:00)
[2022-01-04] MEDS ORDERED: Levothyroxine Sodium 75 MCG TAB PO SCH (06:00)
[2022-01-04] MEDS ORDERED: Furosemide 20 MG TAB PO SCH (09:00)
== END 2022-01-03 14:45 | disposition home or self-care (01) ==
LOC: ERS 08:25 → ERHOLD 09:38 → NEURO 13:04
PROVIDERS: ADMIT Emergency Medicine; ATTEND Emergency Medicine
DX: G51.0 Bell's palsy (principal); E78.2 Mixed hyperlipidemia; I10 Essential (primary) hypertension; E11.42 Type 2 diabetes mellitus with diabetic polyneuropathy; E03.9 Hypothyroidism, unspecified; M51.36 Other intervertebral disc degeneration, lumbar region; I08.0 Rheumatic disorders of both mitral and aortic valves; Z79.1 Long term (current) use of non-steroidal anti-inflammatories (NSAID); Z79.82 Long term (current) use of aspirin; Z79.890 Hormone replacement therapy; Z79.899 Other long term (current) drug therapy; Z88.1 Allergy status to other antibiotic agents; Z98.1 Arthrodesis status; Z20.822 Contact with and (suspected) exposure to COVID-19
CPT/HCPCS: 70551; 80053; 80061; 82962; 84484; 85025; 93306; 97116; 97139 ×3; 99285; U0003; U0005; 36415; 36416; G0378; J7512

== ENCOUNTER 2022-02-20 10:07 | Outpatient (CLI) | payer MEDICARE | END 2022-02-20 10:08 | disposition home or self-care (01) | LOC: TBSIIMAG 10:07 | PROVIDERS: ATTEND Nurse Practitioner Family | DX: M48.062 Spinal stenosis, lumbar region with neurogenic claudication (principal); M43.16 Spondylolisthesis, lumbar region; M47.816 Spondylosis without myelopathy or radiculopathy, lumbar region | CPT/HCPCS: 72100; 72148 ==

== ENCOUNTER 2022-04-05 08:03 | Outpatient (CLI) | payer MEDICARE | END 2022-04-05 08:04 | disposition home or self-care (01) | LOC: BICMAMMO 08:03 | PROVIDERS: ATTEND Family Medicine | DX: Z12.31 Encounter for screening mammogram for malignant neoplasm of breast (principal) | CPT/HCPCS: 77063; 77067 ==

== ENCOUNTER 2023-02-10 08:47 | Outpatient (CLI) | payer MEDICARE ==
[2023-02-10 09:43] LABS: PTT 27.1 sec (22.0-33.0); Prothrombin Time 10.3 sec (9.5-12.1)
== END 2023-02-10 08:48 | disposition home or self-care (01) ==
LOC: LABBT 08:47
PROVIDERS: ATTEND Neurological Surgery
DX: Z01.812 Encounter for preprocedural laboratory examination (principal); M48.061 Spinal stenosis, lumbar region without neurogenic claudication
CPT/HCPCS: 85610; 85730

== ENCOUNTER 2024-10-08 13:51 | Outpatient (CLI) | payer MEDICARE, OTHER | END 2024-10-08 13:52 | disposition home or self-care (01) | LOC: BICMAMMO 13:51 | PROVIDERS: ATTEND Family Medicine | DX: Z12.31 Encounter for screening mammogram for malignant neoplasm of breast (principal); Z78.0 Asymptomatic menopausal state | CPT/HCPCS: 77063; 77067; 77080 ==

== ENCOUNTER 2024-10-08 15:08 | Outpatient (CLI) | payer MEDICARE | END 2024-10-08 15:09 | disposition home or self-care (01) | LOC: BICCT 15:08 | PROVIDERS: ATTEND Family Medicine | DX: Z12.2 Encounter for screening for malignant neoplasm of respiratory organs (principal); Z87.891 Personal history of nicotine dependence | CPT/HCPCS: 71271 ==